=== PATIENT | female | born 1955 | race Caucasian/White ===

== ENCOUNTER 2016-10-30 08:10 | Emergency (ER) | payer BC, OTHER ==
[2016-10-30] MEDS ORDERED: Cephalexin CAP* 500 MG PO ONE (08:38)
[2016-10-30] MEDS ORDERED: Phenazopyridine TAB* 100 MG PO ONE (08:39)
--- NOTE | 2016-10-30 08:40 | UC ---
Complaint Female HPI - HPI Summary HPI Summary: 61 yo female with intermittent UTI symptoms x 1 week Wores over the past 1-2 days dysuria/urgency and frequency hematuria today no f/c no back pain some nausea - History Of Current Complaint Chief Complaint: UCGU Stated Complaint: PAINFUL AND FREQUENT URINATION Time Seen by Provider: 10/30/16 08:30 Hx Obtained From: Patient Onset/Duration: Sudden Onset Timing: Intermittent, Lasting Seconds Severity Initially: Mild Severity Currently: None Pain Intensity: 0 - pain with urination only Pain Scale Used: 0-10 Numeric Character: Burning Aggravating Factor(s): Urination Alleviating Factor(s): Nothing Associated Signs And Symptoms: Positive: Negative Related Hx: Similar Episode/Dx as: - UTI - Allergies/Home Medications Allergies/Adverse Reactions: Allergies Allergy/AdvReac Type Severity Reaction Status Date / Time No Known Allergies Allergy Verified 10/30/16 08:22 Home Medications: Home Medications Losartan TAB* [Cozaar TAB*] 50 mg PO DAILY 10/30/16 [History Confirmed 10/30/16] Metformin ER (NF) [Glucophage ER (NF)] 1,500 mg PO DAILY 10/30/16 [History Confirmed 10/30/16] Naproxen Sodium [Eql Naproxen Sodium] 220 mg PO Q12H PRN 10/30/16 [History Confirmed 10/30/16] Sitagliptin (NF) [Januvia (NF)] 50 mg PO DAILY 10/30/16 [History Confirmed 10/30] PMH/Surg Hx/FS Hx/Imm Hx Endocrine History Of: Reports: Diabetes Cardiovascular History Of: Reports: Hypertension Respiratory History Of: Reports: Asthma - Surgical History Surgical History: Yes Surgery Procedure, Year, and Place: Appendectomy, 1973, [place] - Family History Known Family History: Positive: Hypertension, Diabetes - Social History Alcohol Use: None Substance Use Type: None Smoking Status (MU): Never Smoked Tobacco - Immunization History Most Recent Influenza Vaccination: Not the 2015/2016 Season Review of Systems Constitutional: Negative Skin: Negative Eyes: Negative ENT: Negative Respiratory: Negative Cardiovascular: Negative Gastrointestinal: Negative Genitourinary: Dysuria, Hematuria, Frequency, Urgency Motor: Negative Neurovascular: Negative Musculoskeletal: Negative Neurological: Negative Psychological: Negative All Other Systems Reviewed And Are Negative: Yes Physical Exam Triage Information Reviewed: Yes Appearance: Well-Appearing, No Pain Distress, Well-Nourished Vital Signs: Initial Vital Signs Temp 97.9 F 10/30/16 08:21 Pulse 88 10/30/16 08:21 Resp 16 10/30/16 08:21 Pulse Ox 99 10/30/16 08:21 Vital Signs Reviewed: Yes Eyes: Positive: Conjunctiva Clear ENT: Positive: Hearing grossly normal. Negative: Nasal congestion, Nasal drainage, Trismus, Muffled/hoarse voice Neck: Positive: Supple Respiratory: Positive: Lungs clear, Normal breath sounds, No respiratory distress, No accessory muscle use Cardiovascular: Positive: RRR, No Murmur Abdomen Description: Positive: No Organomegaly, Soft. Negative: CVA Tenderness (R), CVA Tenderness (L) Bowel Sounds: Positive: Present Musculoskeletal: Positive: ROM Intact, No Edema Neurological: Positive: Alert. Negative: Muscle Tone Normal, Fatigued Psychological Exam: Normal Skin Exam: Normal Complaint Female Dx - Differential Dx/Diagnosis Provider Diagnoses: acute cystitis Discharge - Discharge Plan Condition: Stable Disposition: HOME
[2016-10-30 08:55] VITALS: BP 120/80
== END 2016-10-30 08:55 | disposition home or self-care (01) ==
LOC: UCCORT 08:10
DX: N30.01 Acute cystitis with hematuria (principal); E11.9 Type 2 diabetes mellitus without complications; Z79.84 Long term (current) use of oral hypoglycemic drugs; I10 Essential (primary) hypertension; J45.909 Unspecified asthma, uncomplicated
CPT/HCPCS: 87077; 87086; 87186; 99212; A9270-GY; G0463

== ENCOUNTER 2018-04-01 18:24 | Emergency (ER) | payer BC, OTHER ==
[2018-04-01 19:09] VITALS: BP 139/64
[2018-04-01] MEDS ORDERED: Nitrofurantoin Macrocrystals* 50 MG CAP PO ONE (19:37)
[2018-04-01] MEDS ORDERED: Phenazopyridine TAB* 100 MG PO ONE (19:38)
--- NOTE | 2018-04-01 20:28 | UC ---
Complaint Female HPI - HPI Summary HPI Summary: c/o urinary frequency and suprapubic pain for the past 3 days. Denies flank pain or fever, states after menopause she has been getting UTI's every 3 months when in the past it would be much less frequently, every couple of years. Denies sexual intercourse preceding symptoms. States her diabetes is well controlled. - History Of Current Complaint Chief Complaint: UCGU Stated Complaint: URINARY Time Seen by Provider: 04/01/18 19:28 Hx Obtained From: Patient ?: No Onset/Duration: Sudden Onset, Lasting Days Timing: Constant Severity Initially: Mild Severity Currently: Moderate Pain Intensity: 0 Pain Scale Used: 0-10 Numeric Character: Burning Aggravating Factor(s): Urination Alleviating Factor(s): Nothing Associated Signs And Symptoms: Positive: Negative - Risk Factors Ectopic Risk Factor: Negative Ovarian Torsion Risk Factor: Negative - Allergies/Home Medications Allergies/Adverse Reactions: Allergies Allergy/AdvReac Type Severity Reaction Status Date / Time codeine AdvReac Nausea Verified 04/01/18 18:55 Home Medications: Home Medications Aspirin [Aspir-Low] 81 mg PO DAILY 04/01/18 [History Confirmed 04/01/18] Cholecalciferol TAB* [Vitamin D TAB*] 2,000 units PO DAILY 04/01/18 [History Confirmed 04/01/18] glipiZIDE [Glipizide ER] 2.5 mg PO DAILY 04/01/18 [History Confirmed 04/01/18] PMH/Surg Hx/FS Hx/Imm Hx Previously Healthy: Yes Endocrine History: Diabetes Cardiovascular History: Hypertension - Surgical History Surgical History: Yes Surgery Procedure, Year, and Place: Appendectomy, 1973, [place] - Family History Known Family History: Positive: Hypertension, Diabetes - Social History Alcohol Use: Rare Substance Use Type: None Smoking Status (MU): Never Smoked Tobacco - Immunization History Most Recent Influenza Vaccination: Not the 2015/2016 Season Review of Systems Genitourinary: Dysuria, Frequency All Other Systems Reviewed And Are Negative: Yes Physical Exam Triage Information Reviewed: Yes Appearance: Well-Appearing, Ill-Appearing, Obese Vital Signs: Initial Vital Signs Temp 98.9 F 04/01/18 19:00 Pulse 87 04/01/18 19:00 Resp 16 04/01/18 19:00 BP 139/64 04/01/18 19:00 Pulse Ox 97 04/01/18 19:00 Vital Signs Reviewed: Yes Eyes: Positive: Conjunctiva Clear ENT: Positive: Hearing grossly normal Neck: Positive: Supple, Nontender Respiratory: Positive: Chest non-tender, Lungs clear, Normal breath sounds Cardiovascular: Positive: RRR, No Murmur Abdomen Description: Positive: Nontender, No Organomegaly, Soft Bowel Sounds: Positive: Present Complaint Female Dx - Course Course Of Treatment: urinalysis is positive for blood, leukocyte esterase, WBC' s. Start medications as prescribed, oral fluids, f/u PCP to address increased UTI after menopause. - Differential Dx/Diagnosis Provider Diagnoses: UTI Discharge - Sign-Out/Discharge Documenting (check all that apply): Discharge/Admit/Transfer - Discharge Plan Condition: Stable Disposition: HOME Prescriptions: Nitrofurantoin Monohyd/M-Cryst [Macrobid 100 mg Capsule] 100 mg PO BID 7 Days # 14 cap Phenazopyridine TAB* [Pyridium 100 mg TAB*] 100 mg PO TID 3 Days #9 tab Patient Education Materials: Phenazopyridine (By mouth), Urinary Tract Infection in Women (ED), Nitrofurantoin Combination (By mouth) Referrals: Tasha Olvera MD [Primary Care Provider] - - Billing Disposition and Condition Condition: STABLE Disposition: Home
== END 2018-04-01 19:46 | disposition home or self-care (01) ==
LOC: UCCORT 18:24
DX: N39.0 Urinary tract infection, site not specified (principal); E11.9 Type 2 diabetes mellitus without complications; I10 Essential (primary) hypertension; Z79.84 Long term (current) use of oral hypoglycemic drugs; Z88.5 Allergy status to narcotic agent; Z79.82 Long term (current) use of aspirin
CPT/HCPCS: 81003; 87077; 87086; 87186; 99212; A9270-GY; G0463